=== PATIENT | female | born 1960 | race Caucasian/White ===

== ENCOUNTER → 2016-12-23 | Outpatient (CLI) | payer BC ==
[~2016-12-23] MED LIST: CYCL-375 PO; ESTR1PAT76; IBUP-1547 PO
--- NOTE | 2016-12-23 11:23 | DI ---
Indication: ITS.REASON: ABN SENSITIVE R02.9, CAROTID BRUIT R09.89 PROCEDURE: US CAROTID DOPP COMPLETE: TECHNIQUE: Grayscale, color and duplex Doppler imaging was performed of the carotid systems bilaterally. Velocities in cm/sec - validated velocity measurements with angiographic measurements, velocity criteria are extrapolated from diameter data as defined by the Society of Radiologists in Ultrasound Consensus Conference Radiology 2003; 229;340-346. RIGHT: PSV ICA 114 EDV ICA 37.8 PSV CCA 83.4 EDV CCA 27.5 SVR 1.4 PSV ECA 85.9 ICA Diameter reduction <20% (0.8-1.0)% LEFT: PSV ICA 111 EDV ICA 67 PSV CCA 79.1 EDV CCA 27.5 SVR 1.4 PSV ECA 80.2 ICA Diameter reduction <20% (0.8-1.0)% The right vertebral artery is patent with cephalic flow. The left vertebral artery is patent with cephalic flow. No atherosclerotic plaque identified. No velocity elevation. Tortuous vessels. IMPRESSION: No hemodynamically significant carotid stenosis. .
== END ==
LOC: IMA 10:12
PROVIDERS: ATTEND Internal Medicine
DX: R09.89 Other specified symptoms and signs involving the circulatory and respiratory systems (principal); R20.9 Unspecified disturbances of skin sensation

== ENCOUNTER → 2017-01-12 | Outpatient (CLI) | payer BC ==
--- NOTE | 2017-01-12 09:07 | DI ---
Indication: ITS.REASON: R10.11 RUQ ABD PAIN PROCEDURE: US GALLBLADDER: Encounter: Initial Comparison: None Technique: Grayscale and color Doppler sonographic imaging of the right upper quadrant of the abdomen was performed. Findings: Hepatic parenchyma is homogeneous without evidence for focal mass. The gallbladder is normal. There is no wall thickening, pericholecystic fluid, sonographic Rogers's sign or cholelithiasis. Both the intra and extrahepatic biliary system are of normal caliber with the common duct measuring 3 mm in dimension. Visualized portions of the head and body of the pancreas are unremarkable. The right kidney is present without collecting system dilatation. The right kidney measures 10.9 cm in length. Impression: Normal right upper quadrant sonogram. .
== END ==
LOC: IMA 07:24
PROVIDERS: ATTEND Internal Medicine
DX: R10.11 Right upper quadrant pain (principal)

== ENCOUNTER → 2017-01-17 | Outpatient (CLI) | payer BC ==
[~2017-01-17] MED LIST changes: +SALINE FLUSH 10ml SYRINGE ONE; +SINCALIDE 5 MCG/VIAL IJ ONE; +SODIUM CHLORIDE (Bacteriostatic) 30ml VIAL ONE
--- NOTE | 2017-01-17 11:28 | DI ---
Indication: ITS.REASON: R10.11 RUQ PAIN PROCEDURE: NM HEPATOBIL/EF: Encounter: Initial Comparison: None Technique: 6.5 mCi of Tc-99m mebrofenin was injected intravenously. At approximately 61 minutes following this administration, 1.8 mcg of Kinevac was administered intravenously. Anterior planar images were obtained and a time/activity curve was calculated. The patient reported abdominal cramping with the injection of the CCK. FINDINGS: Radiotracer uptake is seen homogenously within the liver. There is normal clearance of radiotracer from the blood pool. The common bile duct is visualized at approximately 9 minutes. The gallbladder is visualized by 11 minutes, and radiotracer is excreted into the small bowel. There is no evidence of radiotracer outside the biliary or gastrointestinal tract. The gallbladder ejection fraction is calculated at 13%. IMPRESSION: 1. Gallbladder visualization excluding acute cholecystitis. 2. Decreased gallbladder ejection fraction of 13% and symptomatic CCK injection, suggesting chronic cholecystitis. (Normal gallbladder ejection fraction is typically 35% or more) .
== END ==
LOC: IMA 08:31
PROVIDERS: ATTEND Internal Medicine
DX: K82.8 Other specified diseases of gallbladder (principal); R10.11 Right upper quadrant pain
CPT/HCPCS: 78227; A9537; J2805

== ENCOUNTER 2017-02-16 06:00 | Day surgery (SDC) | payer BC ==
[~2017-02-16] VITALS: Ht 177.8 cm; Wt 92.3 kg
[2017-02-16] VITALS (23 sets, daily range): BP systolic 111–142; BP diastolic 58–70; PULSE 52–90; RESP 14–16; TEMP 95.3–97.8; O2SAT 93–100; Ht 177.8 cm; Wt 92.3 kg
[~2017-02-16 06:00] MED LIST changes: -CYCL-375 PO; -ESTR1PAT76; +ESTR1PAT76 TOP; -IBUP-1547 PO; -SALINE FLUSH 10ml SYRINGE ONE; -SINCALIDE 5 MCG/VIAL IJ ONE; -SODIUM CHLORIDE (Bacteriostatic) 30ml VIAL ONE
--- OUTSIDE RECORDS SUMMARY | 2017-02-16 06:03 | XMS REPORT | Continuity of Care Document ---
Author Author [facility] Organization [facility] Address Unknown Phone Unavailable Support Name Relationship Address Phone VITO BARRERA Dawn YEPEZ Caregiver [address] [place] [address] Unavailable SEMAJ LINDSAY MD Caregiver [address] [facility] [address] [place] [address] Unavailable [employer]ME[employer] Next Of Kin [id number] [id number] C Insurance Providers Guarantor Jonathan Avalos Address [address] [id number] c Email DENIED\NO TO PT [facility] Number [id number] Subscriber's Name Jonathan Avalos Relationship 18 Self Group Number [id number] Effective Date 13 Chief Complaint and Reason for Visit Chief Complaint Upper Extremity Problem Reason for Visit Trapezius muscle spasm Problems Past Problems Medical Problem Onset Date Trapezius muscle spasm Unknown Medications Current Home Medications Medication Dose Units Route Directions Days Qty Instructions Start Date Cyclobenzaprine Hcl 10 Mg Tablet 1 Tab Oral Every 8 Hours Prn as needed for Muscle Spasm 5 Days [address] Rodolfo Raines [facility] [address] [phone] Use caution while taking; no driving, operating equipment. 06/27/16 Estradiol (Estradiol Tds 0.05 Mg/Day (W)) 1 Each Patch.tdwk 12 06/27/16 Ibuprofen 800 Mg Tablet 1 Tab Oral Every 8 Hours Prn as needed for Pain 5 Days [address] Rodolfo Raines [facility] [address] [phone] 06/27/16 Social History No social history. Hospital Discharge Instructions No hospital discharge instructions. Plan of Care Discharge Date 06/27/16 11:20am Disposition 01 DISCHARGED HOME, SELF-CARE Condition at Discharge Stable Instructions/Education Provided DI for Neck Pain Prescriptions See Medication Section Referrals SEMAJ LINDSAY MD Address: [address] [place] [address] [place] [phone] Additional Instructions/Education Take muscle relaxant as directed and as needed; Take ibuprofen as needed; Use heat to neck at intervals. Follow with PCP if not improving or if worsening. Functional Status No functional status results. Allergies, Adverse Reactions, Alerts No allergy information available. Immunizations No immunization records. Vital Signs Acute Vital Signs Vital Response Date/Time Temperature (Fahrenheit) 98.3 deg F (96.8 - 99.1) 06/27/2016 10:40am Temperature (Calculated Celsius) 36.43925 degrees C (36.0 - 37.3) 06/27/2016 10:40am Pulse Rate (adult) 75 bpm (60 - 100) 06/27/2016 10:40am Respiratory Rate 16 breaths/min (10 - 20) 06/27/2016 10:40am O2 Sat by Pulse Oximetry 94 % (90 - 100) 06/27/2016 10:40am Blood Pressure 107/72 mm Hg 06/27/2016 10:40am Height (Inches) 70.00 inches 06/27/2016 10:40am Weight (Kilograms) 88.200 kg 06/27/2016 10:40am Body Mass Index (BMI) 27.0 06/27/2016 10:40am Results Laboratory Results Test Name Result Units Flags Reference Collection Date/Time Result Date/ Time Comments White Blood Count 4.8 T/MM3 4.5-11.0 04/12/2016 4:55pm 04/12/2016 4: 59pm Red Blood Count 4.76 M/MM3 4.00-5.20 04/12/2016 4:55pm 04/12/2016 4: 59pm Hemoglobin 14.2 GM/DL 12-16 04/12/2016 4:55pm 04/12/2016 4:59pm Hematocrit 42.5 % 36-46 04/12/2016 4:55pm 04/12/2016 4:59pm Mean Corpuscular Volume 89.3 UM3 80-100 04/12/2016 4:55pm 04/12/2016 4: 59pm Mean Corpuscular Hemoglobin 29.8 UUG 26-34 04/12/2016 4:55pm 2015 4:59pm Mean Corpuscular Hemoglobin Concent 33.4 GM/DL 31-37 04/12/2016 4:55pm 04/12/2016 4:59pm RDW Standard Deviation 37.9 FL 36.9-50.2 04/12/2016 4:55pm 04/12/2016 4 :59pm Platelet Count 191 T/MM3 130-400 04/12/2016 4:55pm 04/12/2016 4:59pm Mean Platelet Volume 9.1 UM3 L 9.4-12.4 04/12/2016 4:55pm 04/12/2016 4: 59pm Neutrophils (%) (Auto) 52.3 % 33-66 04/12/2016 4:55pm 04/12/2016 4: 59pm Lymphocytes (%) (Auto) 36.8 % 23-45 04/12/2016 4:55pm 04/12/2016 4: 59pm Monocytes (%) (Auto) 8.9 % 0-9.0 04/12/2016 4:55pm 04/12/2016 4:59pm Eosinophils (%) (Auto) 1.4 % 0-4 04/12/2016 4:55pm 04/12/2016 4:59pm Basophils (%) (Auto) 0.4 % 0-2 04/12/2016 4:55pm 04/12/2016 4:59pm Immature Granulocyte % (Auto) 0.2 % 0.0-0.5 04/12/2016 4:55pm 2015 4:59pm Absolute Neutrophils (auto) 2.5 T/MM3 1.8-7.7 04/12/2016 4:55pm 2015 4:59pm Absolute Lymphocytes (auto) 1.8 T/MM3 1-4.8 04/12/2016 4:55pm 2015 4:59pm Absolute Monocytes (auto) 0.4 T/MM3 0-0.8 04/12/2016 4:55pm 04/12/2016 4:59pm Absolute Eosinophils (auto) 0.1 T/MM3 0-0.5 04/12/2016 4:55pm 2015 4:59pm Absolute Basophils (auto) 0.0 T/MM3 0-0.2 04/12/2016 4:55pm 04/12/2016 4:59pm Absolute Immature Granulocyte (auto 0.01 T/MM3 0.00-0.03 04/12/2016 4: 55pm 04/12/2016 4:59pm Icterus Index < 2 0-7 04/12/2016 4:55pm 04/12/2016 5:11pm Chemistry Specimen Hemolysis 16 0-25 04/12/2016 4:55pm 04/12/2016 5: 11pm 0-25: Specimen Exhibited No Hemolysis. Turbidity < 20 0-20 04/12/2016 4:55pm 04/12/2016 5:11pm Sodium Level 141 MEQ/L 134-144 04/12/2016 4:55pm 04/12/2016 5:11pm Potassium Level 4.1 MEQ/L 3.6-5 04/12/2016 4:55pm 04/12/2016 5:11pm Chloride Level 100 MEQ/L 98-107 04/12/2016 4:55pm 04/12/2016 5:11pm Carbon Dioxide Level 30 MEQ/L 22-30 04/12/2016 4:55pm 04/12/2016 5: 11pm Anion Gap 11 MEQ/L 5-15 04/12/2016 4:55pm 04/12/2016 5:11pm Blood Urea Nitrogen 13.0 MG/DL 7-17 04/12/2016 4:55pm 04/12/2016 5: 11pm Creatinine 0.7 MG/DL 0.7-1.2 04/12/2016 4:55pm 04/12/2016 5:11pm BUN/Creatinine Ratio 19 RATIO 6-26 04/12/2016 4:55pm 04/12/2016 5:11pm Glomerular Filtration Rate Calc 87 04/12/2016 4:55pm 04/12/2016 5: 11pm Glucose Level 89 MG/DL 65-110 04/12/2016 4:55pm 04/12/2016 5:11pm Calculated Osmolality 270 MOSM/KG 261-280 04/12/2016 4:55pm 04/12/2016 5:11pm Calcium Level 9.6 MG/DL 8.4-10.2 04/12/2016 4:55pm 04/12/2016 5:11pm Total Bilirubin 0.90 MG/DL 0.20-1.30 04/12/2016 4:55pm 04/12/2016 5: 11pm Alkaline Phosphatase 71 U/L 38-126 04/12/2016 4:55pm 04/12/2016 5:11pm Total Protein 8.1 G/DL 6.3-8.2 04/12/2016 4:55pm 04/12/2016 5:11pm Albumin 4.9 G/DL 3.5-5.0 04/12/2016 4:55pm 04/12/2016 5:11pm Globulin 3.2 G/DL 2.4-3.6 04/12/2016 4:55pm 04/12/2016 5:11pm Albumin/Globulin Ratio 1.5 RATIO 1.1-2.2 04/12/2016 4:55pm 04/12/2016 5 :11pm Aspartate Amino Transf (AST/SGOT) 35 U/L 14-36 04/12/2016 4:55pm 2015 5:11pm Alanine Aminotransferase (ALT/SGPT) 26 U/L 9-52 04/12/2016 4:55pm 04/12 5:11pm C-Reactive Protein < 5.0 MG/L 0-9 04/12/2016 4:55pm 04/12/2016 5:11pm Lipase 165 U/L 23-300 04/12/2016 4:55pm 04/12/2016 5:11pm Thyroid Stimulating Hormone (TSH) 0.90 MIU/L 0.47-4.68 04/12/2016 4: 55pm 04/12/2016 5:39pm Serum Amylase 69 U/L 25-125 04/12/2016 4:55pm 04/12/2016 10:27pm Amylase performed at [facility], [address] [place] [id number] [employer] Marco A Richardson, Procedures Procedure Status Date Provider(s) ROUTINE VENIPUNCTURE Completed 04/12/16 COMPREHEN METABOLIC PANEL Completed 04/12/16 ASSAY OF AMYLASE Completed 04/12/16 ASSAY OF LIPASE Completed 04/12/16 ASSAY THYROID STIM HORMONE Completed 04/12/16 COMPLETE CBC W/AUTO DIFF WBC Completed 04/12/16 C-REACTIVE PROTEIN Completed 04/12/16 Encounters Encounter Location Arrival/Admit Date Discharge/Depart Date Attending Provider Departed Emergency Room [facility] 06/27/16 10:23am 06/27/16 11: 20am VITO BARRERA APRN Registered Clinic [facility] 04/12/16 4:48pm SEMAJ LINDSAY MD Recent Diagnosis
--- NOTE | 2017-02-16 06:56 | ANESPREOP ---
Anesthesia Record Date and Time DATE: 02/16/17 TIME: 06:53 Proposed Surgical Procedure LAP CUONG WITH IOC NPO since: Midnight Allergies: Coded Allergies: Sulfa (Sulfonamide Antibiotics) (Verified Allergy, Mild, HIVES, 02/15/17) Penicillins (Verified Allergy, Unknown, 02/15/17) Ht/Wt/BMI Height: 5 ' 10.00 " Weight: 91.600 kg BMI: 29.0 kg/m2 Vital Signs Date Time Temp Pulse Resp B/P Pulse Ox O2 Delivery O2 Flow Rate FiO2 02/16/17 06:19 97.8 76 16 130/68 99 Room Air Medications Inpatient Medications Current Medications Medications (Trade) Dose Ordered Sig/Alo Start Time Stop Time Status Last Admin Dose Admin Lactated Ringer's (Lactated Ringers) 1,000 ml @ 100 mls/hr Q10H 02/16/17 07:00 02/16/17 06:44 100 MLS/HR Estradiol (Estradiol TDS 0.05 mg/day (W)) 1 Each Patch.tdwk, 1 PATCH TOP 1 WEEK, (Reported) Last Taken: on 02/13/17 Currently on Beta Liad: No Medical/Surgical History Anesthesia PMH: Reports: Anxiety, Denies: Anesthesia Reactions, Cancer, Glaucoma, Malignant Hyperthermia, Sleep Apnea Has pt. smoked today?: No Use Chewing Tobacco?: No Second Hand Exposure: No Substance Use Type: does not use Alcohol Intake: none HX of Last Menstrual Period: HYST Past Surgical History Orthopedic Surgeries: Abdominal Surgeries: Yes Genitourinary Surgeries: Cardiac Surgeries: Endocrine Surgeries: Reproductive Surgeries: Yes - D&C, JUDIT/BSO Neurological Surgeries: Ear Surgeries: Nose Surgeries: Throat Surgeries: Other Surgeries: Yes - COLONOSCOPY, EGD Anesthesia Adverse Reactions: FOUND none Family Hx of Anesthesia Advers: none Hx of Motion Sickness: No Physical Exam Respiratory: Lungs clear Cardiovascular: FOUND Regular rate, rhythm Airway Assessment Mallampati Score: II TMD: 3 Fingerbreadths Neck Extension: Good Overall Assessment: No Airway Concerns ASA: 1 Plan Anesthesia Plan: GETA Discussion Discussed risks/options/alternatives of anesthesia and questions answered. Patient consents. Nursing pain assessment noted. Attestation Statement Prior to the delivery of any anesthetic medication, I examined the patient, developed the plan, obtained the patient's consent and discussed the risk and benefits of the procedure with the patient/guardian. NATAN ABARCA February 16, 2017 06:56
[2017-02-16] MEDS ORDERED: LR 1,000 ML IV SCH (07:00)
[2017-02-16] MEDS ORDERED: LIDOCAINE 1% (10mg/ml) 2ml SDV INJ ONE (07:00)
[2017-02-16] MEDS ORDERED: PROPOFOL 200mg 20 ML IV ONE (07:07)
[2017-02-16] MEDS ORDERED: FENTANYL 250mcg/5ml INJECTION ONE (07:07)
[2017-02-16] MEDS ORDERED: ROCURONIUM 50mg/5ml INJECTION IV ONE (07:07)
[2017-02-16] MEDS ORDERED: BUPIVACAINE 0.25%/EPI 1:200,000 30ml SDV ONE (07:13)
[2017-02-16] MEDS ORDERED: LIDOCAINE 1% (10mg/ml) 30ml SDV ONE (07:13)
[2017-02-16] MEDS ORDERED: GLYCOPYRROLATE 0.4mg/2ml INJECTION ONE (07:14)
[2017-02-16] MEDS ORDERED: MIDAZOLAM 2mg/2ml INJECTION IV ONE (07:15)
--- NOTE | 2017-02-16 07:16 | ANESPREOP ---
Anesthesia Record Date and Time DATE: 02/16/17 TIME: 07:13 Pre-Op Diagnosis biliary dyskinesia Proposed Surgical Procedure LAP CUONG WITH IOC NPO since: Midnight Allergies: Coded Allergies: Sulfa (Sulfonamide Antibiotics) (Verified Allergy, Mild, HIVES, 02/15/17) Penicillins (Verified Allergy, Unknown, 02/15/17) Ht/Wt/BMI Height: 5 ' 10.00 " Weight: 91.600 kg BMI: 29.0 kg/m2 Vital Signs Date Time Temp Pulse Resp B/P Pulse Ox O2 Delivery O2 Flow Rate FiO2 02/16/17 06:19 97.8 76 16 130/68 99 Room Air Medications Inpatient Medications Current Medications Medications (Trade) Dose Ordered Sig/Alo Start Time Stop Time Status Last Admin Dose Admin Lactated Ringer's (Lactated Ringers) 1,000 ml @ 100 mls/hr Q10H 02/16/17 07:00 02/16/17 06:44 100 MLS/HR Estradiol (Estradiol TDS 0.05 mg/day (W)) 1 Each Patch.tdwk, 1 PATCH TOP 1 WEEK, (Reported) Last Taken: on 02/13/17 Currently on Beta Lida: No Medical/Surgical History Anesthesia PMH: Reports: Anxiety, Denies: Anesthesia Reactions, Cancer, Glaucoma, Malignant Hyperthermia, Sleep Apnea Smoking Status: Never smoker Has pt. smoked today?: No Use Chewing Tobacco?: No Second Hand Exposure: No Substance Use Type: does not use Alcohol Intake: none HX of Last Menstrual Period: HYST Past Surgical History Orthopedic Surgeries: Abdominal Surgeries: Yes Genitourinary Surgeries: Cardiac Surgeries: Endocrine Surgeries: Reproductive Surgeries: Yes - D&C, JUDIT/BSO Neurological Surgeries: Ear Surgeries: Nose Surgeries: Throat Surgeries: Other Surgeries: Yes - COLONOSCOPY, EGD Anesthesia Adverse Reactions: FOUND none Family Hx of Anesthesia Advers: none Hx of Motion Sickness: No Physical Exam Respiratory: Bilat breath sounds equal, Lungs clear Cardiovascular: FOUND Regular rate, rhythm, FOUND No murmur Airway Assessment Mallampati Score: II TMD: 3 Fingerbreadths Neck Extension: Good Overall Assessment: No Airway Concerns ASA: 1 Plan Anesthesia Plan: GETA Discussion Discussed risks/options/alternatives of anesthesia and questions answered. Patient consents. Nursing pain assessment noted. Present: Spouse Attestation Statement Prior to the delivery of any anesthetic medication, I examined the patient, developed the plan, obtained the patient's consent and discussed the risk and benefits of the procedure with the patient/guardian. SHARLENE SPANGLER CRNA February 16, 2017 07:15
[2017-02-16] MEDS ORDERED: IOHEXOL 300 MG/ML 50ml INJECTION ONE (07:28)
[2017-02-16] MEDS ORDERED: SUGAMMADEX 200 MG/2 ML INJECTION IV ONE (08:40)
[2017-02-16] MEDS ORDERED: ONDANSETRON 4mg/2ml INJECTION ONE (08:40)
[2017-02-16] MEDS ORDERED: KETOROLAC 30mg/ml INJECTION ONE (08:40)
[2017-02-16] MEDS: HYDROMORPHONE 2mg/ml INJECTION IV PRN ×2 (09:14→09:35)
--- NOTE | 2017-02-16 09:14 | GSPOSTPROC ---
Immediate Operative Note DATE: 02/16/17 TIME: 09:14 Postop Diagnosis: biliary dyskinesia Surgery Type: Laparoscopic Surgical Procedure: Cholecystectomy Surgeon: Kasia ASA: 1 EVELNY KHAN MD February 16, 2017 09:14
[2017-02-16] MEDS ORDERED: HYDROMORPHONE 2mg/ml INJECTION IV PRN (09:15)
[2017-02-16] MEDS ORDERED: METOCLOPRAMIDE 10mg/2ml INJECTION IV PRN (09:15)
[2017-02-16] MEDS ORDERED: ONDANSETRON 4mg/2ml INJECTION IV PRN (09:15)
[2017-02-16] MEDS ORDERED: HYDROCODONE/APAP 5 mg/325 mg TABLET PO PRN (09:15)
[2017-02-16] MEDS ORDERED: KETOROLAC 30mg/ml INJECTION IV PRN (09:15)
[2017-02-16] MEDS ORDERED: HYDR-4246 PO (11:55)
--- NOTE | 2017-02-16 12:26 | ANESPO ---
Post-Op Note Date 02/16/17 Time: 12:26 Status Pt Participated in Evaluation: Pt participated in person Vital Signs Date Time Temp Pulse Resp B/P Pulse Ox O2 Delivery O2 Flow Rate FiO2 02/16/17 12:05 61 123/62 96 Room Air 02/16/17 10:15 16 02/16/17 10:05 95.3 02/16/17 09:25 6.00 Respiratory Function: Airway patent, Regular respirations Cardiovascular Function: Regular pulse Mental Status: Alert/oriented Pain Level Intensity: 3 Hydration: IV infusing Complications during Recovery None apparent Follow-Up Instructions Instructions Per Surgeon NICHOLAS RODRIGUEZ CRNA February 16, 2017 12:26
--- NOTE | 2017-02-16 13:16 | DI ---
Indication: ITS.REASON: LAP CUONG PROCEDURE: RF CHOLANGIOGRAM OPERATIVE: Comparison: Gallbladder ultrasound dated January 12, 2017 Findings: 3 fluoroscopic spot images are submitted from an intraoperative cholangiogram. Images demonstrate injection of contrast into the cystic duct with filling of the common duct and intrahepatic biliary tree. No discrete filling defects are identified. Contrast flows into the duodenum. Impression: Intraoperative fluoroscopy as above. Please refer to the dictated operative note for further details. Fluoroscopy time is 12 seconds. Fluoroscopy dose is 217.6 mRad. .
[2017-02-16] MEDS ORDERED: ACETAMINOPHEN 325 MG TABLET PO PRN (14:30)
[2017-02-16] MEDS ORDERED: IBUPROFEN 800 MG TABLET PO PRN (14:30)
--- NOTE | 2017-02-17 07:49 | OPNOTEF ---
DATE OF OPERATION 02/16/2017 SURGEON Jordan Pedroza MD PREOPERATIVE DIAGNOSIS Biliary dyskinesia. POSTOPERATIVE DIAGNOSIS Biliary dyskinesia. PROCEDURE Laparoscopic cholecystectomy with intraoperative cholangiogram. ANESTHESIA General ASA CLASS 1 INDICATIONS The patient is a 56-year-old female who had previously had a HIDA scan that had shown an ejection fraction of 31%. She had delayed surgical intervention for her biliary dyskinesia. She continued to have symptoms attributable to the gallbladder and a repeat HIDA scan showed an ejection fraction of only 13%. She then elected for surgery. FINDINGS The gallbladder itself was grossly normal. She had a very narrow cystic duct, but intraoperative cholangiogram was normal with normal filling of the hepatic ducts and flow into the duodenum with no evidence of filling defects. DESCRIPTION OF PROCEDURE After informed consent was obtained the patient was taken to the operating room and placed in supine position. General endotracheal anesthesia was administered by the anesthesia team. The patient's abdomen was then prepped and draped in the usual sterile fashion. Local was used to anesthetize the skin beneath the umbilicus. Small skin incision was made. The base of the umbilicus was elevated with a penetrating towel clip and a Mejia clamp. A Veress needle was inserted and was used to obtain pneumoperitoneum. A port was then placed followed by an angled laparoscope. The laparoscope was used to guide placement of three additional 5-mm ports with one in the subxiphoid region and two in the right upper quadrant. All of these ports were placed under direct vision after the skin and fascia were anesthetized with local. With ports in position, traction was placed on the gallbladder. There were some adhesions to the undersurface of the liver that were taken down using cautery. Peritoneum overlying the infundibulum was then divided using cautery. Combination of electrocautery and blunt dissection was used to dissect out the cystic duct and cystic artery. Cystic artery did have two branches distally. The cystic artery was clipped with a single clip as was the cystic duct proximally. Small ductotomy was created. A cholangiogram catheter was threaded into position and was held in place with a cholangiogram clamp. Cholangiogram was then successfully obtained. After cholangiogram was completed, the catheter was removed and three more clips were placed distally on the cystic duct. Another clip was placed on the proximal cystic artery and two on the branches of the cystic artery. Cystic artery was divided between the clip and the distal branch clips. The cystic duct was divided between the two proximal clips. The gallbladder was then taken off of the liver in a retrograde fashion using cautery. The gallbladder fossa was inspected and hemostasis was achieved with electrocautery. The gallbladder was placed within an endoscopic retrieval bag and removed from the subxiphoid port site. The port was replaced and the right upper quadrant was irrigated and suctioned free of fluid. Hemostasis was again assured. The area beneath the umbilical entry was also inspected and no injuries were noted. The umbilical and right upper quadrant ports were removed under direct vision. Pneumoperitoneum was evacuated and the subxiphoid port site was removed again. All of the skin incisions were closed with buried interrupted 4-0 Monocryl stitches. Benzoin, Steri-Strips and sterile Band-Aids were applied as a dressing. ALEX
== END 2017-02-16 16:20 | disposition home or self-care (01) ==
LOC: SRG 06:00 → SCU 06:00
PROVIDERS: ATTEND Surgery
DX: K82.0 Obstruction of gallbladder (principal); K82.8 Other specified diseases of gallbladder; K66.0 Peritoneal adhesions (postprocedural) (postinfection); K64.8 Other hemorrhoids; Z90.710 Acquired absence of both cervix and uterus; Z90.722 Acquired absence of ovaries, bilateral; Z90.79 Acquired absence of other genital organ(s); Z79.890 Hormone replacement therapy; Z79.899 Other long term (current) drug therapy
CPT/HCPCS: 47563; 74300; J1170; J1885; J2250; J2405; J2704; J3010; J7030; J7120; Q9967; S0020